=== PATIENT | male | born 1990 | race African-American/Black ===

== ENCOUNTER 2017-11-05 13:32 | Emergency (ER) | payer OTHER ==
[~2017-11-05] VITALS: Ht 182.9 cm; Wt 86.2 kg
[2017-11-05 13:49] VITALS: BP 143/78
[2017-11-05] MEDS ORDERED: NAPR-695 PO (14:07)
[2017-11-05] MEDS ORDERED: CYCL5TAB PO (14:07)
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
== END 2017-11-05 14:22 | disposition home or self-care (01) ==
LOC: ER 13:32
DX: S13.4XXA Sprain of ligaments of cervical spine, initial encounter (principal); J45.909 Unspecified asthma, uncomplicated; F12.10 Cannabis abuse, uncomplicated; Z88.0 Allergy status to penicillin; Z88.2 Allergy status to sulfonamides; V43.52XA Car driver injured in collision with other type car in traffic accident, initial encounter; Y93.I9 Activity, other involving external motion; Y92.410 Unspecified street and highway as the place of occurrence of the external cause; Y99.8 Other external cause status
CPT/HCPCS: 99283

== ENCOUNTER 2018-01-17 08:13 | Emergency (ER) | payer BC, OTHER ==
[2018-01-17 08:58] LABS: INFLUENZA A PATIENT NEGATIVE (NEGATIVE); INFLUENZA B PATIENT NEGATIVE (NEGATIVE); OBC FLU VALID
[2018-01-17] MEDS: IPRATRPIUM/ALBUTEROL 0.5/2.5MG 3 ML NEBU. NEB (09:06)
== END 2018-01-17 09:40 | disposition home or self-care (01) ==
LOC: ER 08:13
DX: J45.21 Mild intermittent asthma with (acute) exacerbation (principal); J06.9 Acute upper respiratory infection, unspecified; F12.10 Cannabis abuse, uncomplicated; Z88.0 Allergy status to penicillin; Z88.2 Allergy status to sulfonamides
CPT/HCPCS: 71046; 87804; 87804-59; 94640; 99285-25; J7620

== ENCOUNTER 2018-07-02 11:46 | Emergency (ER) | payer BC ==
[~2018-07-02] VITALS: Ht 185.4 cm; Wt 88.5 kg
[~2018-07-02 11:46] MED LIST: ALBU0.63 NEB; CYCL5TAB PO; NAPR-695 PO; PRED20TA PO; PROAIR HFA8.5 GM INH
[2018-07-02 13:03] VITALS: BP 136/83
[2018-07-02] MEDS ORDERED: LIDOCAINE WITH 8.4% SOD BICARB 3 ML DISP.SYRIN. INJ ONE (14:00)
--- NOTE | 2018-07-02 14:05 | PHYS DOC ---
Past Medical History Past Medical History: Asthma Past Surgical History: No Surgical History Alcohol Use: None Drug Use: None Adult General Chief Complaint Chief Complaint: LACERATION/AVULSION HPI HPI Patient is a 27 year old M who presents with laceration to right forearm. Patient reports he was trying to pull a piece off of a car when his arm slipped and struck some sharp metal. He denies other injury. Tetanus status unknown. Review of Systems Review of Systems Constitutional: Denies fever or chills [] Musculoskeletal: Denies back pain or joint pain [] Integument: laceration to right forearm Neurologic: Denies focal weakness or sensory changes [] All other systems were reviewed and found to be within normal limits, except as documented in this note. Current Medications Current Medications Current Medications Medications (Trade) Dose Ordered Sig/Victor M Start Time Stop Time Status Last Admin Dose Admin Diphtheria/ Tetanus/Acell Pertussis (Boostrix) 0.5 ml ONCE ONCE 07/02/18 14:19 07/02/18 16:41 DC 07/02/18 14:19 0.5 ML Lidocaine/Sodium Bicarbonate (Buffered Lidocaine 1%) 3 ml 1X ONCE 07/02/18 14:00 07/02/18 14:01 DC 07/02/18 14:00 3 ML Tetanus/ Diphtheria Toxoids (Tenivac Syringe) 0.5 ml ONCE ONCE 07/02/18 14:30 07/02/18 14:30 DC Allergies Allergies Allergies Coded Allergies Type Severity Reaction Last Updated Verified Penicillins Allergy Intermediate 11/05/17 Yes Sulfa (Sulfonamide Antibiotics) Allergy Intermediate 11/05/17 Yes Physical Exam Physical Exam Constitutional: Well developed, well nourished, no acute distress, non-toxic appearance. [] HENT: Normocephalic, atraumatic Eyes: PERRLA, EOMI, conjunctiva normal, no discharge. [] Neck: Normal range of motion, no tenderness, supple, no stridor. [] Skin: Warm, dry, 2 cm laceration to right forearm, bleeding controlled Extremities: No tenderness, ROM intact Neurologic: Alert and oriented X 3, normal motor function, normal sensory function, no focal deficits noted. [] Psychologic: Affect normal, judgement normal, mood normal. [] Current Patient Data Vital Signs Vital Signs Date Time Temp Pulse Resp B/P (MAP) Pulse Ox O2 Delivery O2 Flow Rate FiO2 07/02/18 13:03 98.3 69 16 136/83 (100) 98 Room Air 98.3 EKG EKG [] Radiology/Procedures Radiology/Procedures [] Course & Med Decision Making Course & Med Decision Making Pertinent Labs and Imaging studies reviewed. (See chart for details) Plan: Sutures out in 7 days, tetanus updated follow up with PCP, return precautions reviewed Darryl Disclaimer Darryl Disclaimer This electronic medical record was generated, in whole or in part, using a voice recognition dictation system. Departure Departure Impression: Primary Impression: Forearm laceration Disposition: HOME, SELF-CARE Condition: IMPROVED Referrals: UNKNOWN PCP NAME (PCP) Patient Instructions: Laceration Care, Adult Additional Instructions: Stitches out in 7 days Laceration/Wound Repair Laceration/Wound Repair : Wound Location: upper extremity Wound's Depth, Shape: superficial (right forearm), linear Wound Length (cm): 2 Wound Explored: clean Betadine Prep?: No Anesthesia: 1% Lidocaine Volume Anesthetic (ccs): 2 Wound Repaired With: sutures Suture Size/Type: 4:0 Number of Sutures: 3 Layer Closure?: No Sterile Dressing Applied?: Yes Splint Applied?: No Sling Applied?: No Progress Patient tolerated without difficulty Problem Qualifiers Primary Impression: Forearm laceration Encounter type: initial encounter Laterality: right Qualified Codes: S51.811A - Laceration without foreign body of right forearm, initial encounter VILLA JOHNSTON APRN Jul 02, 2018 14:05
[2018-07-02] MEDS ORDERED: DIPHTH,PERTUSS(ACELL),TET TOX 0.5 ML DISP.SYRIN. VAX IM ONE (14:19)
[2018-07-02] MEDS ORDERED: TETANUS AND DIPHTHERIA TOX/PF 0.5 ML DISP.SYRIN. VAX IM ONE (14:30)
== END 2018-07-02 14:22 | disposition home or self-care (01) ==
LOC: ER 11:46
DX: S51.811A Laceration without foreign body of right forearm, initial encounter (principal); J45.909 Unspecified asthma, uncomplicated; Z88.0 Allergy status to penicillin; Z88.2 Allergy status to sulfonamides; Y28.8XXA Contact with other sharp object, undetermined intent, initial encounter; Y93.89 Activity, other specified; Y92.89 Other specified places as the place of occurrence of the external cause; Y99.8 Other external cause status
CPT/HCPCS: 12001; 90471; 90714; 90715; 99283-25

== ENCOUNTER 2018-07-13 10:00 | Emergency (ER) | payer BC ==
[~2018-07-13] VITALS: Ht 182.9 cm; Wt 88.5 kg
[2018-07-13 10:15] VITALS: BP 124/83
--- NOTE | 2018-07-13 10:48 | PHYS DOC ---
Past Medical History Past Medical History: Asthma Past Surgical History: No Surgical History Alcohol Use: None Drug Use: None Adult General Chief Complaint Chief Complaint: SUTURE/STAPLE REMOVAL HPI HPI Patient is a 27 year old male who presents with need for suture removal from right forearm. Patient states that he had 3 sutures placed on July 02 after he cut himself. Patient states that one of the stitches fell out and is here to have the other 2 removed. He denies any drainage, redness, or warmth at the affected site. He denies any pain at this time. Review of Systems Review of Systems Constitutional: Denies fever or chills [] Integument: Denies rash, erythema, or drainage; reports healed laceration with 2 sutures present to right forearm Neurologic: Denies headache, focal weakness or sensory changes [] Allergies Allergies Allergies Coded Allergies Type Severity Reaction Last Updated Verified Penicillins Allergy Intermediate 11/05/17 Yes Sulfa (Sulfonamide Antibiotics) Allergy Intermediate 11/05/17 Yes Physical Exam Physical Exam Constitutional: Well developed, well nourished, no acute distress, non-toxic appearance. [] HENT: Normocephalic, atraumatic, bilateral external ears normal, nose normal. [ ] Eyes: Normal Lungs & Thorax: Regular even respirations Skin: Warm, dry, no erythema, no rash; laceration site affecting right arm is free of any erythema, drainage, or crusting. Edges are well approximated.[] Neurologic: Alert and oriented X 3, normal motor function, normal sensory function, no focal deficits noted. [] Psychologic: Affect normal, judgement normal, mood normal. [] Current Patient Data Vital Signs Vital Signs Date Time Temp Pulse Resp B/P (MAP) Pulse Ox O2 Delivery O2 Flow Rate FiO2 07/13/18 10:15 98.2 99 16 124/83 (97) 99 Room Air 98.2 EKG EKG [] Radiology/Procedures Radiology/Procedures [] Course & Med Decision Making Course & Med Decision Making Pertinent Labs and Imaging studies reviewed. (See chart for details) Suture removal. Patient verbalized an understanding of home care, follow-up, and return to ED instructions and was in agreement with the plan of care. [] Staff Physician Addendum: I was working in the ER during the course of this patient's visit. I was available for consultation as needed, but I was not directly involved in the care of this patient. Dragon Disclaimer Dragon Disclaimer This electronic medical record was generated, in whole or in part, using a voice recognition dictation system. Departure Departure Impression: Primary Impression: Visit for suture removal Disposition: HOME, SELF-CARE Condition: STABLE Referrals: UNKNOWN PCP NAME (PCP) Patient Instructions: Suture Removal-Brief Additional Instructions: Continue to apply antibiotic ointment as needed. Follow-up with your primary care doctor as needed. Return to the emergency room if your symptoms worsen. SHILPA POWERS ASSISTANT MECHANIC Jul 13, 2018 10:48 RANJIT CRUZ MD Jul 14, 2018 18:10
== END 2018-07-13 11:03 | disposition home or self-care (01) ==
LOC: ER 10:00
DX: S51.811D Laceration without foreign body of right forearm, subsequent encounter (principal); J45.909 Unspecified asthma, uncomplicated; Z88.0 Allergy status to penicillin; Z88.2 Allergy status to sulfonamides; X58.XXXD Exposure to other specified factors, subsequent encounter
CPT/HCPCS: 99281

== ENCOUNTER 2021-03-10 23:32 | Emergency (ER) | payer SELFPAY ==
[~2021-03-10] VITALS: Ht 182.9 cm; Wt 90.0 kg
[~2021-03-10 23:32] MED LIST changes: +ALBU2.5V8 INH; -PROAIR HFA8.5 GM INH
[2021-03-11] MEDS ORDERED: DEXAMETHASONE SOD PHOS 4 MG/ML VIAL PO ONE (00:30)
[2021-03-11] MEDS ORDERED: IPRATRPIUM/ALBUTEROL 0.5/2.5MG 3 ML NEBU. NEB ONE (00:30)
--- NOTE | 2021-03-11 00:59 | RAD ---
Single view chest dated 03/11/2021: Comparison: 01/17/2018 Clinical Indication: Shortness of breath and cough. Findings: Single upright portable exam of the chest was performed. Heart size and mediastinal contours are with in normal limits given technique. The lungs are clear without evidence of focal consolidation. Vascul ar interstitium is within normal limits. Impression:: No acute radiographic abnormality. Electronically signed by: Gonzalo Bowen MD (03/11/2021 12:57 AM) ROGERS
--- NOTE | 2021-03-11 01:02 | ED.ADGEN ---
Past Medical History Past Medical History: Asthma Past Surgical History: No Surgical History Smoking Status: Never Smoker Alcohol Use: None Drug Use: None General Adult EDM: Chief Complaint: ASTHMA HPI: HPI: Patient is a 30-year-old male with past medical history of asthma and allergies who presents to the emergency room complaining of 2 days of wheezing. Patient states that he has given himself 3 treatments at home and is used in his inhaler twice. He was started to get worried because he was feeling anxious and was not sure if he had used too much. He states he continues to have wheezing and has had a little bit of throat irritation. He denies any significant cough. He states that his son did have a cold last week and he started having wheezing shortly thereafter. It has been quite sometime since he has had to be on steroids. He denies any kind of chest pain. He denies significant shortness of breath. Review of Systems: Review of Systems: Complete ROS is negative unless otherwise documented in HPI Current Medications: Current Medications Medications (Trade) Dose Ordered Sig/Victor M Start Time Stop Time Status Last Admin Dose Admin Albuterol/ Ipratropium (Duoneb) 3 ml 1X ONCE 03/11/21 00:30 4 00:31 DC 03/11/21 00:49 3 ML Dexamethasone Sodium Phosphate (Decadron) 10 mg 1X ONCE 03/11/21 00:30 03/11/21 00:31 DC Allergies: Allergies: Allergies Coded Allergies Type Severity Reaction Last Updated Verified Penicillins Allergy Intermediate 11/05/17 Yes Sulfa (Sulfonamide Antibiotics) Allergy Intermediate 11/05/17 Yes Physical Exam: PE: General: Awake, alert, NAD. Well Nourished, well hydrated. Cooperative HEENT: Atraumatic, EOMI, PERRL, airway patent, moist oral mucosa Neck: Supple, trachea midline Respiratory: Normal effort, diffuse expiratory wheezing CV: Tachycardia, normal rhythm, no murmur, cap refill <2 GI: Soft, nondistended, nontender, no masses MSK: No obvious deformities Skin: Warm, dry, intact Neuro: A&O x3, speech NL, sensory and motor grossly intact, no focal deficits Psych: Normal affect, normal mood, not suicidal or homicidal Current Patient Data: Vital Signs: Vital Signs Date Time Temp Pulse Resp B/P (MAP) Pulse Ox O2 Delivery O2 Flow Rate FiO2 03/11/21 00:49 100 Room Air 03/10/21 23:45 97.6 100 18 143/90 (107) 97.6 EKG: EKG: [] Heart Score: C/O Chest Pain: N/A Risk Factors: Risk Factors: DM, Current or recent (<one month) smoker, HTN, HLP, family history of CAD, obesity. Risk Scores: Score 0 - 3: 2.5% MACE over next 6 weeks - Discharge Home Score 4 - 6: 20.3% MACE over next 6 weeks - Admit for Clinical Observation Score 7 - 10: 72.7% MACE over next 6 weeks - Early Invasive Strategies Radiology/Procedures: Radiology/Procedures: [] Course & Med Decision Making: Course & Med Decision Making Pertinent Labs and Imaging studies reviewed. (See chart for details) Patient is a 30-year-old with a history of asthma who presents the emergency room complaining of shortness of breath, wheezing, and chest tightness. Presentation is concerning for an acute asthma exacerbation. Upon arrival to the Emergency Room, patient is not requiring oxygen. Chest x-ray is negative for acute infection. Upon reevaluation, patient symptoms have resolved. Patient does not need magnesium at this time. He will be placed on prednisone. He will also be given an inhaler and a prescription for his nebulizer. Patient's test results and vitals while in the ED were fully reviewed and discussed with the patient. Patient is stable and at this time does not need admission to the hospital. We have discussed strict return precautions and the importance of following up with their Primary Care Physician. Patient stated understanding and was given an opportunity to ask any questions. Patient is in agreement with plan. Darryl Disclaimer: Darryl Disclaimer: This electronic medical record was generated, in whole or in part, using a voice recognition dictation system. Departure Departure Impression: Primary Impression: Asthma attack Disposition: HOME / SELF CARE / HOMELESS Condition: STABLE Referrals: NO PCP (PCP) Patient Instructions: Asthma, Adult Scripts Albuterol Sulfate (ALBUTEROL SULFATE NEB SOLN) 2.5 Mg/3 Ml Vial.neb 1 VIAL NEB PRN Q4HRS, #50 VIAL Prov: CLAUDIA ANDREW MD 03/11/21 Albuterol Sulfate (VENTOLIN HFA INHALER) 18 Gm Hfa.aer.ad 2 PUFF INH QID for FOR ASTHMA, #1 INHALER 0 Refills Prov: CLAUDIA ANDREW MD 03/11/21 Prednisone (PREDNISONE) 50 Mg Tablet 1 TAB PO DAILY, #5 TAB Prov: CLAUDIA ANDREW MD 03/11/21 CLAUDIA ANDREW MD Mar 11, 2021 01:02
[2021-03-11] MEDS ORDERED: PRED50TA PO (01:24)
[2021-03-11] MEDS ORDERED: VENTOLIN HFA18 GM INH (01:24)
[2021-03-11] MEDS ORDERED: ALBU2.5V5 NEB (01:24)
[2021-03-11 02:35] VITALS: BP 145/75
== END 2021-03-11 02:38 | disposition home or self-care (01) ==
LOC: ER 23:32
DX: J45.909 Unspecified asthma, uncomplicated (principal); Z88.0 Allergy status to penicillin; Z88.2 Allergy status to sulfonamides
CPT/HCPCS: 71045; 94640; 96374; 99285; J1100

== ENCOUNTER 2022-03-11 18:00 | Emergency (ER) | payer OTHER ==
[~2022-03-11 18:00] MED LIST changes: +ALBU2.5V5 NEB; +PRED50TA PO; +VENTOLIN HFA18 GM INH
[2022-03-11] MEDS ORDERED: IPRATRPIUM/ALBUTEROL 0.5/2.5MG 3 ML NEBU. NEB ONE (22:56)
[2022-03-11] MEDS ORDERED: methylPREDNISolone SOD SUCC PF 125 MG/2 ML VIAL. ONE (23:04)
[2022-03-11] MEDS ORDERED: IPRATRPIUM/ALBUTEROL 0.5/2.5MG 3 ML NEBU. ONE (23:20)
[2022-03-12] MEDS ORDERED: PRED20TA PO (03:14)
--- NOTE | 2022-03-12 03:14 | PHYS DOC ---
Past Medical History Past Medical History: Asthma Past Surgical History: No Surgical History Smoking Status: Never Smoker Alcohol Use: None Drug Use: None General Adult EDM: Chief Complaint: ASTHMA ATTACK HPI: HPI: Patient is a 31 year old male with history of asthma, presented to ER due to trouble breathing. Patient said he been having trouble breathing for couple days, he has used his inhaler and nebulizer treatment but did not get better. Patient said he needs some steroid. Patient denies any chest pain, no cough, no fever Review of Systems: Review of Systems: Constitutional: Denies fever or chills. [] Eyes: Denies change in visual acuity. [] HENT: Denies nasal congestion or sore throat. [] Respiratory: Denies cough, positive for shortness of air and wheezing Cardiovascular: Denies chest pain or edema. [] GI: Denies abdominal pain, nausea, vomiting, bloody stools or diarrhea. [] : Denies dysuria. [] Musculoskeletal: Denies back pain or joint pain. [] Integument: Denies rash. [] Neurologic: Denies headache, focal weakness or sensory changes. [] Endocrine: Denies polyuria or polydipsia. [] Lymphatic: Denies swollen glands. [] Psychiatric: Denies depression or anxiety. [] Heart Score: C/O Chest Pain: N/A Risk Factors: Risk Factors: DM, Current or recent (<one month) smoker, HTN, HLP, family history of CAD, obesity. Risk Scores: Score 0 - 3: 2.5% MACE over next 6 weeks - Discharge Home Score 4 - 6: 20.3% MACE over next 6 weeks - Admit for Clinical Observation Score 7 - 10: 72.7% MACE over next 6 weeks - Early Invasive Strategies Allergies: Allergies: Allergies Coded Allergies Type Severity Reaction Last Updated Verified Penicillins Allergy Intermediate 11/05/17 Yes Sulfa (Sulfonamide Antibiotics) Allergy Intermediate 11/05/17 Yes Physical Exam: PE: Constitutional: Well developed, well nourished, no acute distress, non-toxic appearance. [] HENT: Normocephalic, atraumatic, bilateral external ears normal, oropharynx moist, no oral exudates, nose normal. [] Eyes: PERRLA, EOMI, conjunctiva normal, no discharge. [] Neck: Normal range of motion, no tenderness, supple, no stridor. [] Cardiovascular:Heart rate regular rhythm, no murmur [] Lungs & Thorax: Bilateral breath with expiratory wheezing to auscultation [] Abdomen: Bowel sounds normal, soft, no tenderness, no masses, no pulsatile masses. [] Skin: Warm, dry, no erythema, no rash. [] Back: No tenderness, no CVA tenderness. [] Extremities: No tenderness, no cyanosis, no clubbing, ROM intact, no edema. [] Neurologic: Alert and oriented X 3, normal motor function, normal sensory function, no focal deficits noted. [] Psychologic: Affect normal, judgement normal, mood normal. [] EKG: EKG: [] Radiology/Procedures: Radiology/Procedures: [] Course & Med Decision Making: Course & Med Decision Making Pertinent Labs and Imaging studies reviewed. (See chart for details) Patient is a 31-year-old male who present to ER due to trouble breathing, history of asthma, patient was given 125 mg of Solu-Medrol IM and a DuoNeb treatment in the ER, he feel much better. Patient was discharged home with a prescription for prednisone . [employer] Disclaimer: [employer] Disclaimer: This electronic medical record was generated, in whole or in part, using a voice recognition dictation system. Departure Departure Impression: Primary Impression: Acute asthma flare Disposition: HOME / SELF CARE / HOMELESS Condition: IMPROVED Referrals: NO PCP (PCP) fOLLOW UP WITH YOUR DOCTOR ON MONDAY Patient Instructions: Asthma, Acute Bronchospasm Additional Instructions: Thank you for visiting our Emergency Department. We appreciate you trusting us with your care. If any additional problems come up don't hesitate to return to visit us. Please follow up with your primary care provider so they can plan additional care if needed and know about the problem that you had. If symptoms worsen come back to the Emergency Department. Any concerning symptoms that start such as chest pain, shortness of air, weakness or numbness on one side of the body, running high fevers or any other concerning symptoms return to the ER. Scripts Prednisone (PREDNISONE) 20 Mg Tablet 2 TAB PO DAILY for 10 Days, #20 TAB Prov: SLY STRINGER DO 03/12/22 SLY STRINGER DO Mar 12, 2022 03:14
== END 2022-03-12 03:55 | disposition home or self-care (01) ==
LOC: ER 18:00
DX: J45.909 Unspecified asthma, uncomplicated (principal); Z88.0 Allergy status to penicillin; Z88.2 Allergy status to sulfonamides
CPT/HCPCS: 99283